=== PATIENT | female | born 2005 | race Caucasian/White ===

== ENCOUNTER 2023-01-24 11:45 | Outpatient (RCR) | payer BC, OTHER, SELFPAY | END 2023-02-01 12:12 | disposition home or self-care (01) | PROVIDERS: Visit Provider Family Medicine | DX: M77.8 Other enthesopathies, not elsewhere classified (principal); G25.89 Other specified extrapyramidal and movement disorders; Z51.89 Encounter for other specified aftercare | CPT/HCPCS: 97110; 97112; 97140; 97161 ==